=== PATIENT | male | born 1960 | race African-American/Black ===

== ENCOUNTER 2021-03-12 00:48 | Emergency (ER) | payer MEDICARE, OTHER ==
[~2021-03-12] VITALS: Ht 185.4 cm; Wt 83.9 kg
[~2021-03-12 00:48] MED LIST: ASCO-495 PO; BISA10SU8 RC; CALC-838 PO; CHOL20004 PO; DIPH50CA37 PO; DOCU-141 PO; FERR325T24 PO; Gel Dressing TP; HYDR-4354 PO; MAGN100T3 PO; MAGN400O6 PO; MULT1TAB11 PO; NA P133E RC; PANT40TA2 PO; RXVAN XX; Zolpidem Tartrate PO
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
--- NOTE | 2021-03-12 04:22 | NUR ---
PT IN BED RESTING. NO DISTRESS NOTED
[2021-03-12] MEDS ORDERED: KETOROLAC TROMETHAMINE INJ 60 MG/2 ML VIAL IM ONE (12:30)
[2021-03-12] MEDS ORDERED: KETOROLAC TROMETHAMINE INJ 30 MG/ML VIAL ONE (12:52)
--- NOTE | 2021-03-12 13:00 | NUR ---
PT AWAKE; ASSISTED ADLS AND TORODOL ORDERED. WOUND CARE DONE TO RIGHT BUTTOCK; DRESSING KEPT C/D/I
--- NOTE | 2021-03-12 13:40 | NUR ---
PER DR. LOUIE PT IS STABLE TO BE D/C HOME. PT REFUSED Written and verbal after care instructions given. Patient REFUSED TO SIGN DC PAPER WORK. PT BEING ESCORTED BY SECURITY.
--- NOTE | 2021-03-12 13:40 | NUR ---
Reyna murray in ED - 03/12/21 at 1347 by DORI Patient discharged to home in stable condition. Written and verbal after care instructions given. Patient verbalizes understanding of instruction. PT ambulatory with a steady gait
[2021-03-12 13:41] VITALS: BP 124/70
== END 2021-03-12 13:41 | disposition home or self-care (01) ==
LOC: ER 00:51
DX: F10.129 Alcohol abuse with intoxication, unspecified (principal); M25.511 Pain in right shoulder; M25.512 Pain in left shoulder; J45.909 Unspecified asthma, uncomplicated; F12.90 Cannabis use, unspecified, uncomplicated; Z88.0 Allergy status to penicillin; Z79.899 Other long term (current) drug therapy; Y90.9 Presence of alcohol in blood, level not specified
CPT/HCPCS: 71045; 73030 ×2; 82962; 96372; 99284; A6403; J1885

== ENCOUNTER 2021-04-01 12:50 | Emergency (ER) | payer OTHER ==
[~2021-04-01] VITALS: Ht 185.4 cm; Wt 85.7 kg
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
--- NOTE | 2021-04-01 13:13 | NUR ---
X RAY AT BEDSIDE
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
[2021-04-01] MEDS ORDERED: IBUPROFEN 400 MG TABLET PO ONE (14:30)
[2021-04-01] MEDS ORDERED: IBUPROFEN 400 MG TABLET ONE (14:30)
--- NOTE | 2021-04-01 14:40 | NUR ---
CRUTCHES DISPENSED TO PT. TEACHING DONE.
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
--- NOTE | 2021-04-01 15:36 | NUR ---
Patient discharged to home in stable condition. Written and verbal after care instructions given. Patient verbalizes understanding of instruction, but refuses to sign discharge paperwork.
[2021-04-01 15:39] VITALS: BP 124/71
== END 2021-04-01 15:40 | disposition home or self-care (01) ==
LOC: ER 12:54
DX: S42.491A Other displaced fracture of lower end of right humerus, initial encounter for closed fracture (principal); S83.8X1A Sprain of other specified parts of right knee, initial encounter; J45.909 Unspecified asthma, uncomplicated; Z88.0 Allergy status to penicillin; F12.90 Cannabis use, unspecified, uncomplicated; Z79.899 Other long term (current) drug therapy; X50.1XXA Overexertion from prolonged static or awkward postures, initial encounter; Y93.89 Activity, other specified; Y92.89 Other specified places as the place of occurrence of the external cause; Y99.8 Other external cause status
CPT/HCPCS: 73080-TC; 73564-TC

== ENCOUNTER 2021-08-28 21:24 | Emergency (ER) | payer OTHER ==
[~2021-08-28] VITALS: Ht 177.8 cm; Wt 68.0 kg
[2021-08-28 21:45] VITALS: BP 137/80
[2021-08-28] MEDS ORDERED: ACETAMINOPHEN 325 MG TABLET ONE (22:21)
--- NOTE | 2021-08-28 22:24 | NUR ---
Patient discharged to home in stable condition. Written and verbal after care instructions given. Patient verbalizes understanding of instruction. Pt ambulatory with a steady gait
[2021-08-28] MEDS ORDERED: ACETAMINOPHEN 325 MG TABLET PO ONE (22:30)
== END 2021-08-28 22:25 | disposition home or self-care (01) ==
LOC: ER 21:28
DX: T59.3X3A Toxic effect of lacrimogenic gas, assault, initial encounter (principal); J45.909 Unspecified asthma, uncomplicated; F17.200 Nicotine dependence, unspecified, uncomplicated; Z88.0 Allergy status to penicillin; Z91.013 Allergy to seafood; Z79.899 Other long term (current) drug therapy; Y92.89 Other specified places as the place of occurrence of the external cause